=== PATIENT | male | born 1970 | race Native Hawaiian/Other Pacific Islander ===

== ENCOUNTER 2017-01-22 11:35 | Emergency (ER) | payer OTHER ==
[~2017-01-22] VITALS: Ht 193 cm; Wt 104.3 kg
[2017-01-22 11:41] VITALS: TEMP 98.2
[2017-01-22 12:44] LABS: PLATELET COUNT 279 K/uL (142-355)
[2017-01-22 12:50] LABS: POTASSIUM 3.9 mmol/L (3.6-5.2); SODIUM 134 mmol/L (136-145)
[2017-01-22 13:17] VITALS: BP 158/97
== END 2017-01-22 13:59 | disposition home or self-care (01) ==
LOC: ED 11:35
DX: I10 Essential (primary) hypertension (principal)
CPT/HCPCS: 36415; 80053; 81000; 82550; 84484; 85027; 85610; 93005; 96374; 99284; J3490